=== PATIENT | female | born 1945 | race Two or more races ===

== ENCOUNTER 2017-06-30 08:44 | Outpatient (CLI) | payer OTHER | END 2017-06-30 08:56 | disposition home or self-care (01) | LOC: TOM 08:44 | DX: I74.8 Embolism and thrombosis of other arteries (principal) | CPT/HCPCS: 71260; Q9965 ==

== ENCOUNTER 2020-12-13 11:12 | Outpatient (CLI) | payer OTHER | END 2020-12-13 11:20 | disposition home or self-care (01) | LOC: NUCLEAR 11:12 | PROVIDERS: ATTEND Internal Medicine Rheumatology | DX: I87.2 Venous insufficiency (chronic) (peripheral) (principal); I82.493 Acute embolism and thrombosis of other specified deep vein of lower extremity, bilateral ==